=== PATIENT | female | born 1995 | race Caucasian/White ===

== ENCOUNTER 2023-01-12 21:26 | Inpatient (IN) | payer OTHER ==
[~2023-01-12] VITALS: Ht 152.4 cm; Wt 63.5 kg
[2023-01-12] MEDS ORDERED: KETOROLAC TROMETHAMINE 30 MG/ML VIAL IV STA (22:17)
[2023-01-12] MEDS ORDERED: IOPAMIDOL 610MG/1ML 300 MG/ML VIAL IV ONE (22:29)
[2023-01-12] MEDS ORDERED: SODIUM CHLORIDE 0.9% 1000ML 1,000 ML IV ONE (22:30)
[2023-01-12] MEDS ORDERED: KETOROLAC TROMETHAMINE 30 MG/ML VIAL ONE (22:56)
[2023-01-12] MEDS ORDERED: SODIUM CHLORIDE 0.9% 1000ML 1,000 ML ONE (22:56)
[2023-01-13] VITALS (11 sets, daily range): BP systolic 102–122; BP diastolic 63–78; PULSE 50–65; RESP 12–18; TEMP 98–98.5; O2SAT 98–100
[2023-01-13] MEDS ORDERED: D5.45%NS/KCL 20MEQ 1,000 ML IV SCH (01:15)
[2023-01-13] MEDS: ONDANSETRON HCL INJ 2MG/ML 2ML 2 MG/ML VIAL IV PRN ×5 (03:18→22:18)
[2023-01-13] MEDS: KETOROLAC TROMETHAMINE 30 MG/ML VIAL IV PRN ×3 (03:19→20:50)
[2023-01-13] MEDS ORDERED: BUPIVACAINE HCL 0.5% INJ 30 ML VIAL INJ ONE (08:52)
[2023-01-13] MEDS ORDERED: SUGAMMADEX SODIUM 200 MG/2 ML VIAL IV ONE (09:56)
[2023-01-13] MEDS ORDERED: ONDANSETRON HCL INJ 2MG/ML 2ML 2 MG/ML VIAL IV PRN (10:15)
[2023-01-13] MEDS ORDERED: ONDANSETRON HCL INJ 2MG/ML 2ML 2 MG/ML VIAL ONE ×2 (10:45→13:37)
[2023-01-13] MEDS: SODIUM CHLORIDE 0.9% 1000ML 1,000 ML IV SCH ×2 (11:50→20:54)
[2023-01-13] MEDS: Morphine 4mg INJECTION 4 MG/ML INJ IV PRN ×3 (12:27→22:18)
[2023-01-13] MEDS ORDERED: LIDOCAINE HCL 2% LOCAL INJ 5 ML SDV VIAL INJ ONE (13:37)
[2023-01-13] MEDS ORDERED: KETOROLAC TROMETHAMINE 30 MG/ML VIAL ONE (13:37)
[2023-01-13] MEDS ORDERED: PROPOFOL IV EMULSION 10 MG/ML 20 ML VIAL ONE (13:37)
[2023-01-13] MEDS ORDERED: SEVOFLURANE INHAL SOLN 250 ML PEN BTL ONE (13:37)
[2023-01-13] MEDS ORDERED: SUCCINYLCHOLINE CHLORIDE 20 MG/ML 10ML VIAL ONE (13:37)
[2023-01-13] MEDS ORDERED: ROCURONIUM BROMIDE 10 MG/ML 5ML VIAL IV ONE (13:37)
[2023-01-13] MEDS ORDERED: POVIDONE IODINE 0.05% 0.05 % ML PO ONE (13:37)
[2023-01-13] MEDS ORDERED: METOCLOPRAMIDE HCL 10 MG/2ML VIAL ONE (13:37)
[2023-01-13] MEDS ORDERED: DEXAMETHASONE SOD PHOS INJ 4 MG/ML SDV ONE (13:37)
[2023-01-13] MEDS: HYDROCODONE/APAP 5MG-325MG TAB PO PRN (16:14)
[2023-01-13] MEDS ORDERED: Morphine 10mg syringe 10 MG/ML INJ ONE (17:53)
[2023-01-13] MEDS ORDERED: FENTANYL CITRATE/PF 100MCG/2 ML INJ ONE (17:53)
[2023-01-13] MEDS ORDERED: MIDAZOLAM HCL 2 MG/2 ML VIAL ONE (17:53)
[2023-01-14] VITALS (10 sets, daily range): BP systolic 99–124; BP diastolic 51–79; PULSE 49–62; RESP 16–20; TEMP 98.3–99.3; O2SAT 96–100
[2023-01-14] MEDS: HYDROCODONE/APAP 5MG-325MG TAB PO PRN ×2 (00:41→20:46)
[2023-01-14] MEDS: Morphine 4mg INJECTION 4 MG/ML INJ IV PRN ×3 (02:57→17:23)
[2023-01-14] MEDS: ONDANSETRON HCL INJ 2MG/ML 2ML 2 MG/ML VIAL IV PRN ×3 (02:57→17:22)
[2023-01-14] MEDS: KETOROLAC TROMETHAMINE 30 MG/ML VIAL IV PRN (05:31)
[2023-01-14] MEDS: SODIUM CHLORIDE 0.9% 1000ML 1,000 ML IV SCH (05:34)
[2023-01-14 05:50] LABS: ANION GAP 10.4 mmol/L (8-16); CALCIUM 8.5 mg/dL (8.4-10.2); CREATININE, SERUM 0.7 mg/dL (0.57-1.11); POTASSIUM 3.4 mmol/L (3.5-5.1)
[2023-01-14 06:08] LABS: ALBUMIN 3.4 g/dL (3.5-5.0); ALBUMIN/GLOBULIN RATIO 1.4 (0.8-2.0)
[2023-01-14 06:42] LABS: BASOPHILS # (AUTO) 0.1 (0.0-0.1); BASOPHILS % 0.6 % (0.0-1.0); EOSINOPHILS # (AUTO) 0.1 (0.0-0.4); HEMATOCRIT 30.7 % (34.2-44.1); HEMOGLOBIN 9.8 g/dL (12.0-16.0); LYMPHOCYTES # (AUTO) 3.1 (1.0-3.2); LYMPHOCYTES % 39.4 % (18.0-39.1); MEAN CORPUSCULAR HEMOGLOBIN 31.6 pg (28-32); MEAN CORPUSCULAR HGB CONC 31.9 g/dL (31-35); MONOCYTES # (AUTO) 0.5 (0.2-0.8); MONOCYTES % 6.3 % (4.4-11.3); NEUTROPHILS # (AUTO) 4.1 (2.1-6.9); NEUTROPHILS % 52.4 % (38.7-80.0); PLATELET COUNT 196 x10e3/uL (140-360); RED CELL DISTRIBUTION WIDTH 15.5 % (11.7-14.4)
[2023-01-14] MEDS: POTASSIUM CHL 40 MEQ in SODIUM CHLORIDE 0.9% 1000ML 1,000 ML IV SCH ×2 (10:00→20:12)
[2023-01-14] MEDS ORDERED: ACETAMINOPHEN 1000 MG/100 ML IV ONE (10:00)
[2023-01-14] MEDS: GABAPENTIN 100 MG CAP PO SCH ×2 (17:23→20:24)
[2023-01-15] VITALS (10 sets, daily range): BP systolic 100–115; BP diastolic 58–74; PULSE 41–62; RESP 13–18; TEMP 97.7–99.2; O2SAT 99–100
[2023-01-15] MEDS: POTASSIUM CHL 40 MEQ in SODIUM CHLORIDE 0.9% 1000ML 1,000 ML IV SCH (00:47)
[2023-01-15] MEDS: HYDROCODONE/APAP 5MG-325MG TAB PO PRN (00:47)
[2023-01-15] MEDS: ONDANSETRON HCL INJ 2MG/ML 2ML 2 MG/ML VIAL IV PRN ×5 (03:33→20:16)
[2023-01-15] MEDS: Morphine 4mg INJECTION 4 MG/ML INJ IV PRN ×3 (03:34→09:28)
[2023-01-15 05:07] LABS: BASOPHILS # (AUTO) 0.1 (0.0-0.1); BASOPHILS % 0.9 % (0.0-1.0); EOSINOPHILS # (AUTO) 0.3 (0.0-0.4); EOSINOPHILS % 4.2 % (0.0-6.0); HEMATOCRIT 30.7 % (34.2-44.1); HEMOGLOBIN 10.1 g/dL (12.0-16.0); LYMPHOCYTES # (AUTO) 3.9 (1.0-3.2); LYMPHOCYTES % 56.5 % (18.0-39.1); MEAN CORPUSCULAR HEMOGLOBIN 32.2 pg (28-32); MEAN CORPUSCULAR HGB CONC 32.9 g/dL (31-35); MEAN CORPUSCULAR VOLUME 97.8 fL (81-99); MONOCYTES # (AUTO) 0.4 (0.2-0.8); MONOCYTES % 5.7 % (4.4-11.3); NEUTROPHILS # (AUTO) 2.2 (2.1-6.9); NEUTROPHILS % 32.4 % (38.7-80.0); PLATELET COUNT 180 x10e3/uL (140-360); RED BLOOD COUNT 3.14 x10e6/uL (3.6-5.1); RED CELL DISTRIBUTION WIDTH 15.3 % (11.7-14.4)
[2023-01-15 05:22] LABS: ALBUMIN 3.4 g/dL (3.5-5.0); ALBUMIN/GLOBULIN RATIO 1.5 (0.8-2.0); ANION GAP 11.3 mmol/L (8-16); CALCIUM 8.6 mg/dL (8.4-10.2); CREATININE, SERUM 0.69 mg/dL (0.57-1.11); POTASSIUM 4.3 mmol/L (3.5-5.1)
[2023-01-15] MEDS: GABAPENTIN 100 MG CAP PO SCH ×3 (08:36→20:16)
[2023-01-15] MEDS ORDERED: CELECOXIB 200 MG CAP PO PRN (09:45)
[2023-01-15] MEDS: ACETAMINOPHEN 325 MG TAB PO PRN ×2 (12:38→18:45)
[2023-01-15] MEDS: KETOROLAC TROMETHAMINE 30 MG/ML VIAL IV PRN (20:15)
[2023-01-16] VITALS (9 sets, daily range): BP systolic 105–123; BP diastolic 55–83; PULSE 46–90; RESP 15–20; TEMP 97.5–99.1; O2SAT 96–100
[2023-01-16] MEDS: ONDANSETRON HCL INJ 2MG/ML 2ML 2 MG/ML VIAL IV PRN ×2 (00:26→05:02)
[2023-01-16] MEDS: ACETAMINOPHEN 325 MG TAB PO PRN ×3 (00:26→20:18)
[2023-01-16] MEDS: KETOROLAC TROMETHAMINE 30 MG/ML VIAL IV PRN ×3 (05:02→17:29)
[2023-01-16] MEDS ORDERED: MAGNESIUM HYDROXIDE 30 ML UDC PO PRN (06:15)
[2023-01-16 06:59] LABS: ALBUMIN 3.5 g/dL (3.5-5.0); ALBUMIN/GLOBULIN RATIO 1.2 (0.8-2.0); ANION GAP 13.5 mmol/L (8-16); CALCIUM 8.7 mg/dL (8.4-10.2); CREATININE, SERUM 0.73 mg/dL (0.57-1.11); POTASSIUM 4.5 mmol/L (3.5-5.1)
[2023-01-16] MEDS: PANTOPRAZOLE SOD 40 MG TABEC PO SCH (08:44)
[2023-01-16] MEDS ORDERED: BISACODYL 10 MG SUPP PR PRN (08:45)
[2023-01-16] MEDS ORDERED: IOPAMIDOL 370 MG/ML 100 ML INFUS..BTL INJ ONE (09:46)
[2023-01-16] MEDS: GABAPENTIN 100 MG CAP PO SCH (11:53)
[2023-01-16] MEDS: METOCLOPRAMIDE HCL 10 MG TAB PO SCH ×3 (11:53→20:17)
[2023-01-16] MEDS: SENNA-S TABLET PO SCH ×2 (11:53→17:22)
[2023-01-16] MEDS ORDERED: CYCLOBENZAPRINE HCL 10 MG TAB PO PRN (13:30)
[2023-01-16] MEDS: GABAPENTIN 300 MG CAP PO SCH ×2 (17:22→20:17)
[2023-01-16] MEDS: ENOXAPARIN SOD INJ 40 MG/0.4 ML SYR SC SCH (17:29)
[2023-01-17] VITALS (11 sets, daily range): BP systolic 104–118; BP diastolic 55–76; PULSE 43–67; RESP 18–22; TEMP 97.5–98.9; O2SAT 95–100
[2023-01-17] MEDS: ONDANSETRON HCL INJ 2MG/ML 2ML 2 MG/ML VIAL IV PRN (00:41)
[2023-01-17] MEDS: KETOROLAC TROMETHAMINE 30 MG/ML VIAL IV PRN ×3 (00:43→19:02)
[2023-01-17 05:00] LABS: BASOPHILS # (AUTO) 0.1 (0.0-0.1); BASOPHILS % 1.3 % (0.0-1.0); EOSINOPHILS # (AUTO) 0.4 (0.0-0.4); HEMATOCRIT 32.3 % (34.2-44.1); HEMOGLOBIN 10.6 g/dL (12.0-16.0); LYMPHOCYTES # (AUTO) 2.8 (1.0-3.2); LYMPHOCYTES % 50.6 % (18.0-39.1); MEAN CORPUSCULAR HEMOGLOBIN 31.6 pg (28-32); MEAN CORPUSCULAR HGB CONC 32.8 g/dL (31-35); MEAN CORPUSCULAR VOLUME 96.4 fL (81-99); MONOCYTES # (AUTO) 0.4 (0.2-0.8); NEUTROPHILS # (AUTO) 1.8 (2.1-6.9); NEUTROPHILS % 33.7 % (38.7-80.0); PLATELET COUNT 208 x10e3/uL (140-360); RED BLOOD COUNT 3.35 x10e6/uL (3.6-5.1); RED CELL DISTRIBUTION WIDTH 14.4 % (11.7-14.4)
[2023-01-17 05:26] LABS: ALBUMIN 3.4 g/dL (3.5-5.0); ALBUMIN/GLOBULIN RATIO 1.3 (0.8-2.0); ANION GAP 11.8 mmol/L (8-16); CALCIUM 8.6 mg/dL (8.4-10.2); CREATININE, SERUM 0.76 mg/dL (0.57-1.11); POTASSIUM 3.8 mmol/L (3.5-5.1)
[2023-01-17] MEDS ORDERED: BISACODYL 10 MG SUPP PR ONE (06:15)
[2023-01-17] MEDS: GABAPENTIN 300 MG CAP PO SCH ×3 (08:11→21:23)
[2023-01-17] MEDS: HYDROCODONE/APAP 5MG-325MG TAB PO PRN ×3 (08:12→21:23)
[2023-01-17] MEDS: SENNA-S TABLET PO SCH ×2 (08:12→16:34)
[2023-01-17] MEDS: PANTOPRAZOLE SOD 40 MG TABEC PO SCH (08:12)
[2023-01-17] MEDS: METOCLOPRAMIDE HCL 10 MG TAB PO SCH ×4 (08:12→21:23)
[2023-01-17] MEDS: MAGNESIUM HYDROXIDE 30 ML UDC PO PRN ×2 (11:38→21:23)
[2023-01-17 14:02] LABS: FERRITIN 34.48 ng/mL (4.63-204.00)
[2023-01-17] MEDS: ENOXAPARIN SOD INJ 40 MG/0.4 ML SYR SC SCH (16:34)
[2023-01-18] VITALS (7 sets, daily range): BP systolic 108–120; BP diastolic 52–81; PULSE 47–64; RESP 16–20; TEMP 97.5–99; O2SAT 97–100
[2023-01-18] MEDS: HYDROCODONE/APAP 5MG-325MG TAB PO PRN (02:11)
[2023-01-18] MEDS: ONDANSETRON HCL INJ 2MG/ML 2ML 2 MG/ML VIAL IV PRN (07:28)
[2023-01-18] MEDS: KETOROLAC TROMETHAMINE 30 MG/ML VIAL IV PRN (07:31)
[2023-01-18] MEDS: PANTOPRAZOLE SOD 40 MG TABEC PO SCH (09:44)
[2023-01-18] MEDS: SENNA-S TABLET PO SCH (09:44)
[2023-01-18] MEDS: GABAPENTIN 300 MG CAP PO SCH (09:44)
[2023-01-18] MEDS: METOCLOPRAMIDE HCL 10 MG TAB PO SCH ×2 (09:44→12:01)
[2023-01-18] MEDS ORDERED: CELEBREX200 MG PO (11:16)
[2023-01-18] MEDS ORDERED: NEURONTIN100 MG PO (11:17)
[2023-01-18] MEDS ORDERED: PANTOPRAZOLE SO40 MG PO (11:18)
[2023-01-18] MEDS ORDERED: ONDANSETRON ODT4 MG SL (11:19)
[2023-01-18] MEDS ORDERED: ONDANSETRON HCL 4 MG ORAL DISINTEGRATING TAB PO PRN (12:30)
== END 2023-01-18 12:20 | disposition home or self-care (01) | DRG 343 ==
LOC: FSED 21:31 → ERHOLD 01-13 01:06 → MED/SURG2 01-13 02:24 → OBSVTOIN 01-15 09:48
PROVIDERS: ADMIT Internal Medicine; ATTEND Internal Medicine
PROC: 0DTJ4ZZ Resection of Appendix, Percutaneous Endoscopic Approach (ICD-10-PCS; principal; 2023-01-13 09:28)
DX: K35.80 Unspecified acute appendicitis (principal); Z20.822 Contact with and (suspected) exposure to COVID-19; N83.209 Unspecified ovarian cyst, unspecified side; K80.20 Calculus of gallbladder without cholecystitis without obstruction; M79.10 Myalgia, unspecified site
CPT/HCPCS: 36415; 71260; 72072; 72100; 74177; 78227; 80053; 81003; 81025; 82607; 82728; 82746; 83540; 83690; 84466; 85025; 85045; 88304; 94799; 96361; 99284; A9537; G0378; J0330; J0696; J1100; J1650; J1885; J2001; J2250; J2270; J2405; J2765; J3480; J7030; Q9967